=== PATIENT | male | born 1975 | race Caucasian/White ===

== ENCOUNTER 2024-05-21 10:54 | Emergency (ER) | payer MEDICARE, SELFPAY ==
[2024-05-21 11:03] VITALS: BP 151/90; PULSE 73; RESP 16; TEMP 36.7; O2SAT 100
--- NOTE | 2024-05-21 11:27 | ED_ITS ---
HPI - Wound/Laceration General Chief Complaint: Wound/Laceration Stated Complaint: Laceration to Left Thumb Time Seen by Provider: 05/21/24 11:16 Source: patient, RN notes reviewed and old records reviewed Mode of arrival: ambulatory Limitations: no limitations History of Present Illness HPI narrative: 48 year old male presents to [facility] with complaints of cutting his left thumb at thetip yesterday around 1100 with a chef manager knife cutting up chicken breasts Patient has flap style of cut to the end of left thumb with bleeding controlled,no injury to nail noted. Patient has full mobility of this left thumb, denies any tingling or numbness to his thumb, Patient reports that his tetanus is not up to date. Onset (ago): day(s) (yesterday at 1100) Patient tetanus UTD: No Treatments prior to arrival: other (cleansed with soap and water, bandage) Related Data Home Medications ?Medication ?Instructions ?Recorded ?Confirmed ?Last Taken ?Type buspirone 10 mg tablet 15 mg PO TID 07/19/22 08/03/23 Unknown History desvenlafaxine 50 mg 50 mg PO DAILY 07/19/22 08/03/23 Unknown History tablet,extended release 24 hour desvenlafaxine succinate 25 mg 25 mg PO DAILY 07/19/22 08/03/23 Unknown History tablet,extended release 24 hr oxcarbazepine 600 mg tablet 600 mg PO BID 07/19/22 08/03/23 Unknown History cholecalciferol (vitamin D3) 1,250 1,250 mcg PO WEEKLY 10/11/22 08/03/23 Unknown History mcg (50,000 unit) capsule amlodipine .ROUTE 05/21/24 Unknown History Allergies Allergy/AdvReac Type Severity Reaction Status Date / Time No Known Allergies Allergy Verified 05/21/24 11:09 Review of Systems Review of Systems: CONSTITUTIONAL: Denies fever, chills, or sweats. CARDIOVASCULAR: Denies chest pain, palpitations, or edema. RESPIRATORY: Denies cough or dyspnea. SKIN: Reports laceration to the tip of his left thumb with a chef manager knife cutting up chicken breast yesterday at 1100 with no injury to nail MUSCULOSKELETAL: Denies musculoskeletal pain NEUROLOGIC: Denies numbness, or weakness. All systems reviewed & are unremarkable except as noted in HPI and below [facility] Past Medical History Medical History Vegan diet COVID-26 February 2020 Bipolar disorder PTSD (post-traumatic stress disorder) Hypogonadism Hypothyroidism Diabetes mellitus Essential hypertension Obstructive sleep apnea Family History Family History Other Depression Diabetes mellitus Family history of malignant neoplasm Social History Social History Smoking status: Former smoker (he is vaping daily) Second hand tobacco smoke exposure: No Alcohol intake: current Substance use: never Substance use type: does not use Lack of Transportation: No Lack of Food: Never True Current Housing: I Have Housing Concerned About Future Housing: No Difficulty Paying Gas/Electric Bills: No Difficulty Paying for Meds: No Currently Unemployed: No Education: Bachelor's Degree Difficulty w/ Childcare or Family Care: No Gender identity (if verbalized by the patient): Male Sexual Orientation (if Verbalized by the Patient): Straight or Heterosexual Spiritual care concerns: No Agree to blood products: Yes Comments At time of signature, agree with nursing past medical, surgical, social and family history. There is no relevant family history pertinent to the presenting complaint Exam Narrative: GENERAL: Well-appearing, well-nourished, and in no acute distress. HEAD: Normocephalic, atraumatic. NECK: Supple.no lymphadenopathy CHEST: Clear to auscultation. No respiratory distress. SAO2 100% on room air HEART: Regular rate and rhythm. No murmur heard. Normal peripheral pulses. EXTREMITIES: Normal range of motion. No edema. SKIN: Warm, dry, no rash. Reports small flap style of laceration to the tip of his left thumb with no active bleeding, CSM intact; no injury to the nail NEURO: No focal deficits. Alert and oriented x3. Course Course Level of Care: Express Care Visit Vital Signs Vital signs: Vital Signs Temperature 36.7 C 05/21/24 11:03 Pulse Rate 73 05/21/24 11:03 Respiratory Rate 16 05/21/24 11:03 Blood Pressure 151/90 H 05/21/24 11:03 Pulse Oximetry 100 05/21/24 11:03 Oxygen Delivery Room Air 05/21/24 11:03 Temperature 36.7 C 05/21/24 11:03 Pulse Rate 73 05/21/24 11:03 Respiratory Rate 16 05/21/24 11:03 Blood Pressure 151/90 H 05/21/24 11:03 Pulse Oximetry 100 05/21/24 11:03 Oxygen Delivery Room Air 05/21/24 11:03 Procedures Laceration thumb: Date: 05/21/24 Time: 11:30 Site: other (tip of thumb) Side (If applicable): left Size (cm): 0.5 Description: flap Depth: simple, single layer Local Anesthetic: none Pre-repair: irrigated and other (cleansed with surclens wound cleanser) ====== Skin Level ====== Skin layer closed with: steri strips ====== Subcutaneous Layer ====== ====== Muscle Layer ====== ====== Tendon Layer ====== Dressing: wound to the tip of left thumb cleansed and irrigated and edges secured with steri strip and dressing applied of Telfa and tube gauze, wound care reviewed with patient with understanding voiced. MDM - Wound/Laceration MDM Narrative Medical decision making narrative: Wound explored for foreign body and copious irrigation provided with no evidence of FB. Discussed the potential of retained foreign body with the patient and signs/symptoms that should prompt the patient to immediately go to the ED for reevaluation. The wound was explored and no foreign bodies were found. There was no evidence of tendon or nerve lacerations. The wound was closed per procedure note. A sterile dressing was then applied and anticipatory guidance was provided. Tetanus prophylaxis was given Differential Diagnosis Differential diagnosis: Likely laceration, abrasion, avulsion of skin and other (flap laceration to tip pf left thumb) Medical Records Attestation: I reviewed the patient's medical records. Critical Care Time Critical Care Time Critical Care Time: No Discharge Plan Discharge Clinical Impression: Laceration of left thumb Qualifiers: Encounter type: initial encounter Damage to nail status: without damage Foreign body presence: without foreign body Qualified Code(s): S61.012A - Laceration without foreign body of left thumb without damage to nail, initial encounter Patient Disposition: Home, Self-Care Condition: Stable Instructions: Antibiotic Form, Laceration (ED) Additional Instructions: Keep the area clean and dry No continuous water contact like dishes or swimming You may bathe and wash you hair caution with hair products or lotions dressing of choice watch for infection--redness, swelling, drainage let Steri-Strips fall off on their own recheck with PCP if further concerns or problems If your symptoms persist, change or worsen significantly before you can contact your personal physician then please, without delay, go to the emergency department for further evaluation. Follow-up with PCP in 7-10 days or sooner if needed Follow up with PCP soon in regards to your blood pressure which is elevated above threshold for referral. Blood pressure above 120/80 may indicate pre- hypertension. 151/ Tetanus was updated antibiotic as ordered Patient Language: Mohawk Prescriptions: New cephalexin 500 mg capsule 500 mg PO Q12H Qty: 14 0RF No Action amlodipine .ROUTE buspirone 10 mg tablet 15 mg PO TID desvenlafaxine 50 mg tablet extended release 24hr 50 mg PO DAILY desvenlafaxine succinate 25 mg tablet extended release 24 hr 25 mg PO DAILY oxcarbazepine 600 mg tablet 600 mg PO BID cholecalciferol (vitamin D3) 1,250 mcg (50,000 unit) capsule 1,250 mcg PO WEEKLY (DME) pen needle, diabetic [BD Carmenza 2nd Gen Pen Needle] 32 gauge x 5/32 needle See Rx Instructions .ROUTE .MEDSUPPLY Qty: 100 6RF Rx Instructions: use daily As directed sildenafil 100 mg tablet See Rx Instructions .ROUTE .COMPLEX Qty: 10 6RF Dose Instruction: TAKE 1 TABLET BY MOUTH EVERY DAY NEEDED APPROXIMATELY 1 HOUR BEFORE SEXUAL ACTIVITY Rx Instructions: TAKE 1 TABLET BY MOUTH EVERY DAY NEEDED APPROXIMATELY 1 HOUR BEFORE SEXUAL ACTIVITY ergocalciferol (vitamin D2) 1,250 mcg (50,000 unit) capsule 1,250 mcg PO WEEKLY Qty: 14 3RF Mounjaro 2.5 mg/0.5 mL pen injector 2.5 mg subcut WEEKLY Qty: 7.5 1RF rosuvastatin 5 mg tablet 5 mg PO DAILY Qty: 90 0RF lisinopril 10 mg tablet 10 mg PO DAILY Qty: 90 1RF levothyroxine 112 mcg tablet 112 mcg PO DAILY Qty: 90 2RF Follow-up/Referrals: Moraima López MD [Primary Care Provider] - Time of Disposition: 11:43 Quality Lloyd Coma Scale Eyes: Open Verbal: Oriented and Alert Motor: Follows Commands [place] Coma Total Score: 15
[2024-05-21] MEDS: TETANUS,DIPHTHERIA,AC PERTUSSIS ADULT (0.5 ML) BOOSTRIX IM (11:37)
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
--- OUTSIDE RECORDS SUMMARY | 2024-05-21 11:44 | XMS_ITS | Clinical Summary ---
Author Organization [facility] Address [address] [place] [address] Phone Care Team Providers Care Ice Crusher Name Role Phone Moraima López MD Primary Care Provider [phone] Social History Tobacco Use Types Packs/Day Years Used Date Smoking Tobacco: Never Assessed Sex and Gender Information Value Date Recorded Sex Assigned at Not on file Legal Sex Male 7:15 PM CDT Gender Identity Not on file Sexual Orientation Not on file Plan of Treatment Health Maintenance Due Date Last Done Comments Hepatitis C Virus (HCV) Screening 1974 TdaP Immunization 1974 Hepatitis B Immunization (1 of 3 - 19+ 3-dose series) 1993 Colonoscopy 09/05/2019 Colorectal Cancer Screening 09/05/2019 Influenza Immunization (#1) 2023 SARS-COV-2 Immunization ( season) 2023 03/22/2021, 07/18/2020, 06/24/2020 Respiratory Syncytial Virus (RSV) Immunization (Adult) (1 - 1-dose 75+ series) 2049 Meningococcal Immunization (ACWY) Aged Out No longer eligible b ased on patient's age to complete this topic Pneumococcal Immunization Combined Aged Out No longer eligible b ased on patient's age to complete this topic Rotavirus Immunization Aged Out No lo nger eligible based on patient's age to complete this topic Insurance MEDICARE [facility] Care Teams Ice Crusher Relationship Specialty Start Date End Date Moraima López MD [address] [place] [address] PCP - General Family Medicine 06/20/17
--- OUTSIDE RECORDS SUMMARY | 2024-05-21 11:44 | XMS_ITS | Continuity of Care Document ---
Author Name [facility] Organization [facility] Care Team Providers Care Fish Tender Name Role Phone [facility] Unavailable Unavailable Problems Combined list of problems from Department of Defense and Veterans Affairs facilities. It does not include entries that were removed or entered in error. Problem Status Onset Date Problem Type Date of Resolution Comments Source hypertension systemic Active Condition DoD osteoarthritis knee Active Condition DoD visit for: administrative purpose Inactive Condition Paperwork for p t to be completed after he provides me with the address of the office of coordination for disability. DoD bipolar disorder Active Condition fol lows with psychiatry, on several meds and does not like his psychiatrist, handout given last visit for other network providers, pt to consider swithc in future can self refer DoD obesity morbid Active Condition MH wi ll not approve GB bc of motivational issues, pt not motivated to try anything for wt loss at this poiint; pt aware that I am willing to help when he is DoD Snoring Active Condition at risk fo r VIJAYA, deserves sleep study, consult placed pt to call ref mgt to arrange, likely contribuitng to #1, pt will email me when sleep study done so I can track down results and get back with him on further tx/fu plan DoD chronic sinusitis Active Condition ex am and sx not cw Nanci, will try augmenting 875 bid x3 wks and fu after that DoD hypothyroidism Active Condition renew ed synthroid DoD deviated nasal septum Active Condition not obvious on exam but may be due to old trauma, will check ct sinuses to see if there is any sturctural probs and then consider ENT referral DoD atypical chest pain Active Condition eval'd by dr albright last week, set up for ETT in near future, will use that to help pt design exercise program and risk strat for CAD DoD joint pain, localized in the knee Active Condition A: likely OA or patellofemoral syndrome, pt could benefit from wt loss (see above) but may also benefit from PT or hyalgan dep on pathologyP:--traci ck knee xrays--rec'd otc glucosamine-hollie droitin--if aobve not effective consider hyalgan DoD Bipolar disorder Active Condition [facility] Chronic low back pain Active Condition [facility] Essential hypertension Active Condition [facility] Hypothyroidism Active Condition [facility] Type 2 diabetes mellitus Active Condition [facility] Vitamin D deficiency Active Condition [facility] Diagnosis: ICD-10-CM M54.50 Low back pain, unspecified Active Diagnosis [facility] Diagnosis: ICD-10-CM I10 Essential (primary) hypertension Active Diagnosis [facility] Diagnosis: ICD-10-CM E11.9 Type 2 diabetes mellitus without complications Active Diagnosis [facility] Diagnosis: ICD-10-CM Z01.21 Encounter for dental exam and cleaning w abnormal findings Active Diagnosis [facility] Diagnosis: ICD-10-CM Z12.11 Encounter for screening for malignant neoplasm of colon Active Diagnosis [facility] Diagnosis: ICD-10-CM Z79.899 Other fdc (current) drug therapy Active Diagnosis [facility] Medications Combined list of outpatient medications from Department of Defense and Veterans Affairs facilities.Medications provided include 1) outpatient medications from the last 15 months, and 2) patient-reported medications. Medication Details Route Status Patient Instructions Prescription Expires Prescription Number Last Dispense Date Ordering Provider Order Date Order Qty Source AMLODIPINE BESYLATE 10MG TAB TAKE ONE TABLET BY MOUTH ONCE A DAY ORAL ACTIVE 05/06/2025 [id number] STEPHANIE, NOD K 2024 90 [facility] BISACODYL 5MG TAB,EC TAKE TWO TABLETS BY MOUTH ONE TIME TAKE BISACODY L TABLETS AT 4PM ON AFTERNOO N PRIOR TO TEST. CALL [phone] WITH ANY QUESTION S ABOUT THESE INSTRUCT IONS. MAIL TAKE BISACODY L TABLETS AT 4PM ON AFTERNOO N PRIOR TO TEST. CALL WITH ANY QUESTION S ABOUT THESE INSTRUCT IONS. MAIL ORAL DISCONT INUED BY PROVIDE R 03/06/2024 [id number] Jose M GALICIA 2023 2 [facility] BUSPIRONE HCL 15MG TAB TAKE TWO TABLETS BY MOUTH TWICE A DAY ORAL ACTIVE TREVOR NOONAN B 2023 [facility] CAMPHOR/MEN THOL/METHYL SALICYLATE LARGE PATCH APPLY 1 PATCH TO SKIN SITE ONCE A DAY FOR PAIN (EXTERNA L USE ONLY) TRANSD ERMAL ACTIVE 02/05/2025 [id number] LEROY PRECIADO 2023 60 [facility] DESVENLAFAX INE (EQV-PRISTI Q) 25MG TAB,SA TAKE THREE TABLETS BY MOUTH ONCE A DAY ORAL ACTIVE TREVOR NOONAN B 2023 [facility] DICLOFENAC NA 1% GEL,TOP APPLY 2 GM TO AFFECTED AREA(S) FOUR TIMES A DAY NEEDED FOR PAIN DO NOT EXCEED MORE THAN 16 GRAMS DAILY TO ANY LOWER EXTREMIT Y JOINT. NOT MORE THAN 8 GRAMS DAILY TO ANY UPPER EXTREMIT Y JOINT. MAX 32GM/DAY OVER ALL JOINTS. (MEASURE DOSE WITH RULER ATTACHED INSIDE BOX) TOPICA L ACTIVE 02/05/2025 [id number] 4 LEROY PRECIADO 2023 300 [facility] ERGOCALCIFE ROL 1,250MCG (50,000UNIT ) CAP TAKE 1 CAPSULE BY MOUTH EVERY WEEK ORAL ACTIVE TREVOR NOONAN B 2023 [facility] LEVOTHYROXI NE NA 112MCG TAB (SYNTHROID) TAKE ONE TABLET BY MOUTH EVERY MORNING BEFORE A MEAL ORAL ACTIVE TREVOR NOONAN B 2023 [facility] LISINOPRIL 20MG TAB TAKE ONE-HALF TABLET BY MOUTH ONCE A DAY ORAL ACTIVE 05/06/2025 [id number] STEPHANIE, NOD K 2024 45 [facility] LISINOPRIL 20MG TAB TAKE ONE-HALF TABLET BY MOUTH ONCE A DAY ORAL ACTIVE TREVOR NOONAN B 2023 [facility] OXCARBAZEPI NE 600MG TAB TAKE TWO TABLETS BY MOUTH ONCE A DAY ORAL ACTIVE TREVOR NOONAN B 2023 [facility] PEG-3350/EL ECTROLYTES PWDR MIX AND DRINK CONTENTS OF BOTTLE BY MOUTH DIRECTED (THE DAY BEFORE YOUR TEST ONLY DRINK CLEAR LIQUIDS- NO SOLID FOOD! TAKE THE BISACODY L TABLETS AT 4PM AND MIX THE GOLYTELY WITH WATER AND REFRIGER ATE. AT 7PM DRINK HALF OF THE GOLYTELY . REFRIGER ATE OVERNIGH T. COMPLETE GOLYTELY 3 HRS BEFORE LEAVING HOME FOR TEST. READ YOUR INSTRUCT IONS!) (THE DAY BEFORE YOUR TEST ONLY DRINK CLEAR LIQUIDS- NO SOLID FOOD! TAKE THE BISACODY L TABLETS AT 4PM AND MIX THE GOLYTELY WITH WATER AND REFRIGER ATE. AT 7PM DRINK HALF OF THE GOLYTELY . REFRIGER ATE OVERNIGH T. COMPLETE GOLYTELY 3 HRS BEFORE LEAVING HOME FOR TEST. READ YOUR INSTRUCT IONS!) ORAL DISCONT INUED BY PROVIDE R 03/06/2024 [id number] Jose M GALICIA 2023 1 [facility] ROSUVASTATI N TAB TAKE BY MOUTH EVERY EVENING ORAL ACTIVE NIKKI BROWN K 2024 [facility] SIMETHICONE 80MG TAB,CHEW CHEW AND SWALLOW FOUR TABLETS BY MOUTH DIRECTED FOR GAS DISCOMFO RT FOR TWO DOSES BEFORE GI PROCEDUR E ORAL DISCONT INUED BY PROVIDE R 03/06/2024 [id number] Jose M GALICIA 2023 8 [facility] SODIUM FLUORIDE 1.1% GEL,DENT APPLY LIGHTLY BY MOUTH ONCE A DAY FOR DENTAL CARE - AFTER BRUSHING TEETH; APPLY SPARINGL Y; DO NOT EAT, DRINK OR RINSE FOR 30 MINUTES AFTER APPLICAT ION ORAL ACTIVE 04/15/2025 [id number] 5 KADOSH,NA FTALI 2024 60 [facility] TIRZEPATIDE 2.5MG/0.5ML INJ,SOLN PACK,4 INJECT 2.5MG(0. 5ML) UNDER THE SKIN EVERY WEEK SUBCUT ANEOUS ACTIVE TREVOR NOONAN 2023 [facility] Allergies, Adverse Reactions, Alerts Combined list of allergies from Department of Defense and Veterans Affairs facilities. It does not include entries that were removed or entered in error. Substance Category Reaction Severity Reaction type Status Date Reported Comments Source LITHIUM DERIVATIVES {Cla } Drug allergy (disorder) Unknown active 05/04/2005 DoD Immunizations Combined list of available immunizations from the Department of Defense and Veterans Affairs facilities. Immunization Series Date Given Administered By Site Reaction Lot Number CVX Code Drug Racket Stringer Status Comments Source INFLUENZA, UNSPECIFIED FORMULATION 2023 88 complet ed [facility] Results Combined list of recent chemistry, hematology and other laboratory results from Department of Defense and Veterans Affairs, ranging from 15 months to all on record, depending upon the facility. Order Name Results Value Reference Range Date Interpretation Specimen Comments Source B12 COBALAMIN (VITAMIN B12) [MASS/VOLUM E] IN SERUM OR PLASMA 1221 pg/mL 213 - 816 04/16 H Specimen Type: SERUM No comment entered. Ordering Provider: BA BROWN Report Released Date/Time: Apr 16, 2024 11:22 AM Reporting Lab: [facility] [address] [place] [address] Performing Lab: [address] [address] [facility] FOLATE (ST-NE) FOLATE [MASS/VOLUM E] IN SERUM OR PLASMA 14.2 ng/mL 7 - 20 04/16 Specimen Type: SERUM No comment entered. Ordering Provider: BA BROWN Report Released Date/Time: Apr 16, 2024 11:22 AM Reporting Lab: [facility] [address] [place] [phone] Performing Lab: [address] [phone] [place] [address] [facility] HGA1C HEMOGLOBIN A1C/HEMOGLO BIN.TOTAL IN BLOOD 4.7 4.0 - 6.0 04/16 Specimen Type: BLOOD No comment entered. Ordering Provider: BA BROWN Report Released Date/Time: Apr 16, 2024 11:22 AM Reporting Lab: [place] [id number] [facility] [address] Performing Lab: [address] [phone] [place] [address] [facility] MICRAL/CRE AT PROFILE (STL) ALBUMIN [MASS/VOLUM E] IN URINE 163.2 mg/L 04/16 Specimen Type: URINE No comment entered. Ordering Provider: BA BROWN Report Released Date/Time: Apr 16, 2024 11:22 AM Reporting Lab: [place] [address] [facility] [address] Performing Lab: [address] [address] [facility] MICRAL/CRE AT PROFILE (STL) ALBUMIN/CRE ATININE [MASS RATIO] IN URINE 106 mg/g 0 - 29 04/16 H Specimen Type: URINE No comment entered. Ordering Provider: BA BROWN Report Released Date/Time: Apr 16, 2024 11:22 AM Reporting Lab: [address] [address] Performing Lab: [place] [address] [facility] [address] [facility] MICRAL/CRE AT PROFILE (STL) CREATININE [MASS/VOLUM E] IN URINE 153.6 mg/dL 63 - 166 04/16 Specimen Type: URINE No comment entered. Ordering Provider: BA BROWN Report Released Date/Time: Apr 16, 2024 11:22 AM Reporting Lab: [address] [address] Performing Lab: [address] [phone] [place] [address] [facility] CBC LEUKOCYTES [#/VOLUME] IN BLOOD BY AUTOMATED COUNT 4.6 10*3/u L 3.6 - 11.2 02/04 Specimen Type: BLOOD No comment entered. Ordering Provider: BELINDA PRECIADO Report Released Date/Time: Feb 05, 2024 09:02 AM Reporting Lab: [address] [address] Performing Lab: [address] [address] [place] [facility] CBC ERYTHROCYTE S [#/VOLUME] IN BLOOD BY AUTOMATED COUNT 5.26 10*6/u L 4.10 - 5.70 02/04 Specimen Type: BLOOD No comment entered. Ordering Provider: BELINDA PRECIADO Report Released Date/Time: Feb 05, 2024 09:02 AM Reporting Lab: [place] [address] Performing Lab: [address] [facility] CBC HEMOGLOBIN [MASS/VOLUM E] IN BLOOD 15.1 g/dL 13.1 - 16.8 02/04 Specimen Type: BLOOD No comment entered. Ordering Provider: BELINDA PRECIADO Report Released Date/Time: Feb 05, 2024 09:02 AM Reporting Lab: [place] [address] Performing Lab: [address] [facility] CBC HEMATOCRIT [VOLUME FRACTION] OF BLOOD 45.0 38.2 - 48.4 02/04 Specimen Type: BLOOD No comment entered. Ordering Provider: BELINDA PRECIADO Report Released Date/Time: Feb 05, 2024 09:02 AM Reporting Lab: [place] [address] Performing Lab: [address] [facility] CBC MCV [ENTITIC VOLUME] BY AUTOMATED COUNT 85.6 fL 80.0 - 100.0 02/04 Specimen Type: BLOOD No comment entered. Ordering Provider: BELINDA PRECIADO Report Released Date/Time: Feb 05, 2024 09:02 AM Reporting Lab: [place] [address] Performing Lab: [address] [facility] CBC MCH [ENTITIC MASS] BY AUTOMATED COUNT 28.7 pg 27.0 - 34.0 02/04 Specimen Type: BLOOD No comment entered. Ordering Provider: BELINDA PRECIADO Report Released Date/Time: Feb 05, 2024 09:02 AM Reporting Lab: [facility] [address] [place] [phone] Performing Lab: [address] [phone] [place] [address] [facility] CBC MCHC [MASS/VOLUM E] BY AUTOMATED COUNT 33.6 g/dL 33.0 - 36.0 02/04 Specimen Type: BLOOD No comment entered. Ordering Provider: BELINDA PRECIADO Report Released Date/Time: Feb 05, 2024 09:02 AM Reporting Lab: [address] [address] Performing Lab: [phone] [facility] CBC PLATELETS [#/VOLUME] IN BLOOD BY AUTOMATED COUNT 214 10*3/u L 150 - 400 02/04 Specimen Type: BLOOD No comment entered. Ordering Provider: BELINDA PRECIADO Report Released Date/Time: Feb 05, 2024 09:02 AM Reporting Lab: [facility] [address] [place] [phone] Performing Lab: [address] [phone] [place] [address] [facility] CBC PLATELET MEAN VOLUME [ENTITIC VOLUME] IN BLOOD BY AUTOMATED COUNT 9.9 fL 7.5 - 11.2 02/04 Specimen Type: BLOOD No comment entered. Ordering Provider: BELINDA PRECIADO Report Released Date/Time: Feb 05, 2024 09:02 AM Reporting Lab: [facility] [address] [place] [phone] Performing Lab: [address] [phone] [place] [address] [facility] CBC ERYTHROCYTE DISTRIBUTIO N WIDTH [RATIO] BY AUTOMATED COUNT 13.4 11.8 - 15.1 02/04 Specimen Type: BLOOD No comment entered. Ordering Provider: BELINDA PRECIADO Report Released Date/Time: Feb 05, 2024 09:02 AM Reporting Lab: [facility] [address] [facility] [address] Performing Lab: [facility] [address] [facility] [address] [facility] CBC LYMPHOCYTES /100 LEUKOCYTES IN BLOOD BY AUTOMATED COUNT 15 02/04 Specimen Type: BLOOD No comment entered. Ordering Provider: BELINDA PRECIADO Report Released Date/Time: Feb 05, 2024 09:02 AM Reporting Lab: [facility] [address] [facility] [address] Performing Lab: [facility] [address] [facility] [address] [facility] CBC MONOCYTES/1 00 LEUKOCYTES IN BLOOD BY AUTOMATED COUNT 8 02/04 Specimen Type: BLOOD No comment entered. Ordering Provider: BELINDA PRECIADO Report Released Date/Time: Feb 05, 2024 09:02 AM Reporting Lab: [facility] [address] [facility] [address] Performing Lab: [facility] [address] [facility] [address] [facility] CBC NEUTROPHILS /100 LEUKOCYTES IN BLOOD BY AUTOMATED COUNT 75 02/04 Specimen Type: BLOOD No comment entered. Ordering Provider: BELINDA PRECIADO Report Released Date/Time: Feb 05, 2024 09:02 AM Reporting Lab: [facility] [address] [facility] [address] Performing Lab: [facility] [address] [facility] [address] [facility] CBC EOSINOPHILS /100 LEUKOCYTES IN BLOOD BY AUTOMATED COUNT 1 02/04 Specimen Type: BLOOD No comment entered. Ordering Provider: BELINDA PRECIADO Report Released Date/Time: Feb 05, 2024 09:02 AM Reporting Lab: [facility] [address] [facility] [address] Performing Lab: [facility] [address] [facility] [address] [facility] CBC BASOPHILS/1 00 LEUKOCYTES IN BLOOD BY AUTOMATED COUNT 1 02/04 Specimen Type: BLOOD No comment entered. Ordering Provider: BELINDA PRECIADO Report Released Date/Time: Feb 05, 2024 09:02 AM Reporting Lab: [address] [address] Performing Lab: [address] [address] [facility] CBC LYMPHOCYTES [#/VOLUME] IN BLOOD BY AUTOMATED COUNT 0.70 10*3/u L 0.77 - 4.50 02/04 L Specimen Type: BLOOD No comment entered. Ordering Provider: BELINDA PRECIADO Report Released Date/Time: Feb 05, 2024 09:02 AM Reporting Lab: [address] [address] Performing Lab: [address] [address] [facility] CBC MONOCYTES [#/VOLUME] IN BLOOD BY AUTOMATED COUNT 0.35 10*3/u L 0.19 - 0.80 02/04 Specimen Type: BLOOD No comment entered. Ordering Provider: BELINDA PRECIADO Report Released Date/Time: Feb 05, 2024 09:02 AM Reporting Lab: [address] [address] Performing Lab: [address] [address] [facility] CBC NEUTROPHILS [#/VOLUME] IN BLOOD BY AUTOMATED COUNT 3.45 10*3/u L 2.10 - 8.00 02/04 Specimen Type: BLOOD No comment entered. Ordering Provider: BELINDA PRECIADO Report Released Date/Time: Feb 05, 2024 09:02 AM Reporting Lab: [address] [address] Performing Lab: [address] [address] [facility] CBC EOSINOPHILS [#/VOLUME] IN BLOOD BY AUTOMATED COUNT 0.05 10*3/u L 0.00 - 0.60 02/04 Specimen Type: BLOOD No comment entered. Ordering Provider: BELINDA PRECIADO Report Released Date/Time: Feb 05, 2024 09:02 AM Reporting Lab: [place] [address] Performing Lab: [address] [phone] [facility] CBC BASOPHILS [#/VOLUME] IN BLOOD BY AUTOMATED COUNT 0.03 10*3/u L 0.00 - 0.20 02/04 Specimen Type: BLOOD No comment entered. Ordering Provider: BELINDA PRECIADO Report Released Date/Time: Feb 05, 2024 09:02 AM Reporting Lab: [place] [address] Performing Lab: [phone] [facility] COMPREHENS RAI METABOLIC PANEL CREATININE [MASS/VOLUM E] IN SERUM OR PLASMA 0.81 mg/dL 0.7 - 1.3 02/04 Specimen Type: PLASMA Comment: No hemolysis noted. Ordering Provider: BELINDA PRECIADO Report Released Date/Time: Feb 05, 2024 09:02 AM Reporting Lab: [place] [address] Performing Lab: [address] [phone] [facility] COMPREHENS RAI METABOLIC PANEL UREA NITROGEN [MASS/VOLUM E] IN SERUM OR PLASMA 18.9 mg/dL 9.0 - 25.0 02/04 Specimen Type: PLASMA Comment: No hemolysis noted. Ordering Provider: BELINDA PRECIADO Report Released Date/Time: Feb 05, 2024 09:02 AM Reporting Lab: [place] [address] Performing Lab: [facility] [address] [facility] [address] [facility] COMPREHENS RAI METABOLIC PANEL GLUCOSE [MASS/VOLUM E] IN SERUM OR PLASMA 83 mg/dL 72 - 99 02/04 Specimen Type: PLASMA Comment: No hemolysis noted. Ordering Provider: BELINDA PRECIADO Report Released Date/Time: Feb 05, 2024 09:02 AM Reporting Lab: [place] [address] [facility] [address] Performing Lab: [place] [address] [facility] [address] [facility] COMPREHENS RAI METABOLIC PANEL SODIUM [MOLES/VOLU ME] IN SERUM OR PLASMA 137 meq/L 136 - 145 02/04 Specimen Type: PLASMA Comment: No hemolysis noted. Ordering Provider: BELINDA PRECIADO Report Released Date/Time: Feb 05, 2024 09:02 AM Reporting Lab: [place] [address] [facility] [address] Performing Lab: [place] [address] [facility] [address] [facility] COMPREHENS RAI METABOLIC PANEL POTASSIUM [MOLES/VOLU ME] IN SERUM OR PLASMA 4.1 meq/L 3.5 - 5 02/04 Specimen Type: PLASMA Comment: No hemolysis noted. Ordering Provider: BELINDA PRECIADO Report Released Date/Time: Feb 05, 2024 09:02 AM Reporting Lab: [place] [address] [facility] [address] Performing Lab: [place] [address] [facility] [address] [facility] COMPREHENS RAI METABOLIC PANEL CHLORIDE [MOLES/VOLU ME] IN SERUM OR PLASMA 100 meq/L 98 - 107 02/04 Specimen Type: PLASMA Comment: No hemolysis noted. Ordering Provider: BELINDA PRECIADO Report Released Date/Time: Feb 05, 2024 09:02 AM Reporting Lab: [place] [address] [facility] [address] Performing Lab: [facility] [address] [place] [address] [facility] COMPREHENS RAI METABOLIC PANEL CARBON DIOXIDE, TOTAL [MOLES/VOLU ME] IN SERUM OR PLASMA 30 meq/L 22 - 31 02/04 Specimen Type: PLASMA Comment: No hemolysis noted. Ordering Provider: BELINDA PRECIADO Report Released Date/Time: Feb 05, 2024 09:02 AM Reporting Lab: [address] [address] Performing Lab: [address] [phone] [place] [address] [facility] COMPREHENS RAI METABOLIC PANEL CALCIUM [MASS/VOLUM E] IN SERUM OR PLASMA 10.1 mg/dL 8.4 - 10.4 02/04 Specimen Type: PLASMA Comment: No hemolysis noted. Ordering Provider: BELINDA PRECIADO Report Released Date/Time: Feb 05, 2024 09:02 AM Reporting Lab: [address] [address] Performing Lab: [address] [phone] [place] [address] [facility] COMPREHENS RAI METABOLIC PANEL PROTEIN [MASS/VOLUM E] IN SERUM OR PLASMA 7.0 g/dL 6 - 8.6 02/04 Specimen Type: PLASMA Comment: No hemolysis noted. Ordering Provider: BELINDA PRECIADO Report Released Date/Time: Feb 05, 2024 09:02 AM Reporting Lab: [place] [address] [facility] [address] Performing Lab: [address] [address] [facility] COMPREHENS RAI METABOLIC PANEL ALBUMIN [MASS/VOLUM E] IN SERUM OR PLASMA 4.7 g/dL 3.4 - 5 02/04 Specimen Type: PLASMA Comment: No hemolysis noted. Ordering Provider: BELINDA PRECIADO Report Released Date/Time: Feb 05, 2024 09:02 AM Reporting Lab: [facility] [address] [facility] [address] Performing Lab: [facility] [address] [facility] COMPREHENS RAI METABOLIC PANEL BILIRUBIN.T OTAL [MASS/VOLUM E] IN SERUM OR PLASMA 0.7 mg/dL 0.2 - 1.2 02/04 Specimen Type: PLASMA Comment: No hemolysis noted. Ordering Provider: BELINDA PRECIADO Report Released Date/Time: Feb 05, 2024 09:02 AM Reporting Lab: [place] [address] [facility] [address] Performing Lab: [address] [address] [facility] COMPREHENS RAI METABOLIC PANEL ALKALINE PHOSPHATASE [ENZYMATIC ACTIVITY/VO LUME] IN SERUM OR PLASMA 81 U/L 40 - 150 02/04 Specimen Type: PLASMA Comment: No hemolysis noted. Ordering Provider: BELINDA PRECIADO Report Released Date/Time: Feb 05, 2024 09:02 AM Reporting Lab: [address] [address] Performing Lab: [place] [address] [facility] [address] [facility] COMPREHENS RAI METABOLIC PANEL ASPARTATE AMINOTRANSF ERASE [ENZYMATIC ACTIVITY/VO LUME] IN SERUM OR PLASMA 30 U/L 5 - 34 02/04 Specimen Type: PLASMA Comment: No hemolysis noted. Ordering Provider: BELINDA PRECIADO Report Released Date/Time: Feb 05, 2024 09:02 AM Reporting Lab: [facility] [address] [place] [phone] Performing Lab: [address] [address] [facility] COMPREHENS RAI METABOLIC PANEL ALANINE AMINOTRANSF ERASE [ENZYMATIC ACTIVITY/VO LUME] IN SERUM OR PLASMA 62 U/L 8 - 40 02/04 H Specimen Type: PLASMA Comment: No hemolysis noted. Ordering Provider: BELINDA PRECIADO Report Released Date/Time: Feb 05, 2024 09:02 AM Reporting Lab: [facility] [address] [place] [address] Performing Lab: [address] [phone] [place] [address] [facility] COMPREHENS RAI METABOLIC PANEL GLOMERULAR FILTRATION RATE/1.73 SQ M.PREDICTED [VOLUME RATE/AREA] IN SERUM, PLASMA OR BLOOD BY CREATININE- BASED FORMULA (CKD-EPI 2020) 108.1 60 02/04 Specimen Type: PLASMA Comment: No hemolysis noted. Ordering Provider: BELINDA PRECIADO Report Released Date/Time: Feb 05, 2024 09:02 AM Reporting Lab: [facility] [address] [place] [phone] Performing Lab: [address] [phone] [place] [address] [facility] HGA1C HEMOGLOBIN A1C/HEMOGLO BIN.TOTAL IN BLOOD 4.7 4.0 - 6.0 02/04 Specimen Type: BLOOD No comment entered. Ordering Provider: BELINDA PRECIADO Report Released Date/Time: Feb 05, 2024 09:02 AM Reporting Lab: [facility] [address] [place] [phone] Performing Lab: [place] [address] [facility] [phone] [place] [address] [facility] LIPID PANEL (STL) CHOLESTEROL [MASS/VOLUM E] IN SERUM OR PLASMA 150 mg/dL 0 - 200 02/04 Specimen Type: PLASMA Comment: No hemolysis noted. Ordering Provider: BELINDA PRECIADO Report Released Date/Time: Feb 05, 2024 09:02 AM Reporting Lab: [facility] [address] [place] [phone] Performing Lab: [address] [phone] [facility] LIPID PANEL (STL) TRIGLYCERID E [MASS/VOLUM E] IN SERUM OR PLASMA 48 mg/dL 0 - 150 02/04 Specimen Type: PLASMA Comment: No hemolysis noted. Ordering Provider: BELINDA PRECIADO Report Released Date/Time: Feb 05, 2024 09:02 AM Reporting Lab: [facility] [address] [place] [phone] Performing Lab: [facility] [address] [place] [phone] [facility] LIPID PANEL (STL) CHOLESTEROL IN LDL [MASS/VOLUM E] IN SERUM OR PLASMA BY CALCULATION 60 mg/dL 02/04 Specimen Type: PLASMA Comment: No hemolysis noted. Ordering Provider: BELINDA PRECIADO Report Released Date/Time: Feb 05, 2024 09:02 AM Reporting Lab: [address] [address] Performing Lab: [address] [address] [facility] LIPID PANEL (STL) CHOLESTEROL IN HDL [MASS/VOLUM E] IN SERUM OR PLASMA 80 mg/dL 40 02/04 Specimen Type: PLASMA Comment: No hemolysis noted. Ordering Provider: BELINDA PRECIADO Report Released Date/Time: Feb 05, 2024 09:02 AM Reporting Lab: [facility] [address] [place] [phone] Performing Lab: [address] [phone] [place] [address] [facility] TSH W/ REFLEX FT4 (STL) THYROTROPIN [UNITS/VOLU ME] IN SERUM OR PLASMA 1.568 u[IU]/ mL 0.47 - 5 02/04 Specimen Type: PLASMA No comment entered. Ordering Provider: BELINDA PRECIADO Report Released Date/Time: Feb 05, 2024 09:02 AM Reporting Lab: [facility] [address] [place] [phone] Performing Lab: [address] [address] [facility] VITAMIN D, 25-HYDROXY 25-HYDROXYV ITAMIN D3 [MASS/VOLUM E] IN SERUM OR PLASMA 34.1 ng/mL 30 - 96 02/04 Specimen Type: SERUM Comment: The listed sex of this patient may not be a typical indication for this test. Therefore, reference ranges or interpretive criteria listed may not be valid. Clinical correlation suggested. Ordering Provider: BELINDA PRECIADO Report Released Date/Time: Feb 05, 2024 09:02 AM Reporting Lab: [facility] [address] [facility] [address] Performing Lab: [facility] [address] [facility] [phone] [facility] Vital Signs Combined list of inpatient and outpatient Vital Signs from Department of Defense and Veterans Affairs, ranging from 12 months to all on record, depending upon the facility. Vital Sign Value Date Comments Source SYSTOLIC BLOOD PRESSURE 148 04/30/2024 10:27:57 [facility] DIASTOLIC BLOOD PRESSURE 88 04/30/2024 10:27:57 [facility] PULSE 80 04/30/2024 10:27:57 [facility] SYSTOLIC BLOOD PRESSURE 151 04/16/2024 10:34:45 [facility] DIASTOLIC BLOOD PRESSURE 91 04/16/2024 10:34:45 [facility] PULSE OXIMETRY 98 04/16/2024 10:34:45 [facility] WEIGHT 223.5 04/16/2024 10:34:45 [facility] BMI 28 kg/m2 04/16/2024 10:34:45 [facility] PAIN 4 04/16/2024 10:34:45 [facility] HEIGHT 75 04/16/2024 10:34:45 [facility] TEMPERATURE 98.7 04/16/2024 10:34:45 [facility] PULSE 68 04/16/2024 10:34:45 [facility] RESPIRATION 18 04/16/2024 10:34:45 [facility] SYSTOL[facility] BLO[facility] PRESS[facility] 149 02/05/2024 08:33:13 [facility] DIASTOLIC BLOOD PRESSURE 92 02/05/2024 08:33:13 [facility] PULSE OXIMETRY 100 02/05/2024 08:33:13 [facility] WEIGHT 212 02/05/2024 08:33:13 [facility] [place] [facility] BMI 27 kg/m2 02/05/2024 08:33:13 [facility] [place] [facility] PAIN 0 02/05/2024 08:33:13 [facility] HEIGHT 75 02/05/2024 08:33:13 [facility] TEMPERATURE 97.2 02/05/2024 08:33:13 [facility] [place] [facility] PULSE 77 02/05/2024 08:33:13 [facility] RESPIRATION 18 02/05/2024 08:33:13 [facility] Encounters Combined list of: 1) Encounters from Department of Veterans Affairs facilities going backup to the last 18 months, not all [place] inpatient encounters are included; 2) Encounters from the Department of Defense facilities going backup to 280 months. Location Location Details Encounter Type Encounter Number Reason For Visit Attending Provider ADM Date DC Date Status Disposition Source [address] [place] [address] [place] [facility] [facility] F[place] Res [place]) OUTPATIENT [id number] History of Chest Pain New to Clinic PERLA ALBRIGHT 04/21 Released w/o Limitations [address] [place] [address] Lit [facility]S [facility] Fam [facility] [place]) [address] [place] [address] [facility] [facility] Fam Res [place]) OUTPATIENT [id number] initial pcm appt--s tress test/kn ee pain AHSAN GUERRERO 05/04 Released w/o Limitations [address] [place] [address] Lit [facility] F[facility] [place]) [address] [place] [address] Lit [facility]Sco tt [facility] [place] Fam Res [place]) OUTPATIENT [id number] labs,xr ays AHSAN GUERRERO 06/01 Released w/o Limitations [address] [place] [address] Lit [facility] F[facility] [place]) [address] [place] [address] Lit [facility]Sco tt [facility] [place] Fam Res [place]) TELE CONSULT [id number] Med Refill BOBY MEJIA 07/[address] [place] [address] Lit [facility] F[facility] [place]) [address] [place] [address] Lit [place] [facility] [place] Fam Res [place]) OUTPATIENT [id number] blood pressur e, tests AHSAN GUERRERO 07/21 Released w/o Limitations [address] [place] [address] Lit [place] [facility] Fam Res [place]) [address] [place] [address] Lit ETIENNEB [facility] OUTPATIENT [id number] BENEDICTO, 10/02 Released w/o Limitations [address] [place] [address] Lit ETIENNEElizabeth [facility]) [address] [place] [address] Lit [place] [facility] Fam Res [place]m [place]) OUTPATIENT [id number] f/u sinus,B P AHSAN GUERRERO 10/05 Released w/o Limitations [address] [place] [address] Lit ETIENN[place]izabeth [place] [facility] Fam Res [place]) [address] [place] [address] Lit [facility]ENNEB [facility]co tt [facility] [place] [place] Fam Res [place]m [place]) OUTPATIENT [id number] Counsli ng josue on related ROYGRAND F 11/13 Released w/o Limitations [address] [place] [address] Lit ETIENNEB [place] [facility] [place] Fam Res Tm [place]) [address] [place] [address] Lit E[facility]ENNEB [facility]Sco tt [facility] [place] Fam Res Tm Green) TELE CONSULT [id number] Form AHSAN GUERRERO 11/[address] [place] [address] Lit ETIENNEB [place] [facility] Fam Res Tm Green) [address] [place] [address] Lit E[facility]ENNEB [facility]Sco tt [facility] FAMRES Tm Blue) TELE CONSULT [id number] Med RefDANIELE Albrecht 01/[address] [place] [address] Lit CLIFTONB [place] [facility] FAMRES Tm Blue) [facility] Outpatient Encounter [id number] 12/08 [facility]ARM ADDL 15 MIN [id number] Diagnos is: ICD-10- CM 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 Outpatient Encounter [id number] 02/04 [facility] Outpatient Encounter [id number] 02/04 [facility] CB OFFICE O/P NEW MOD 45 MIN [id number] Diagnos is: ICD-10- CM E11.9 Type 2 diabete s mellitu s without complic ations PRECIADO,T ODD 02/04 [facility] Outpatient Encounter [id number] Diagnos is: ICD-10- CM Z12.11 Encount er for screeni ng for maligna nt neoplas m of colon GUIGNON, RIST[place] 02/04 [facility] Outpatient Encounter [id number] PRECIADO,T ODD 02/05 [facility] Outpatient Encounter [id number] 02/07 [facility] Outpatient Encounter [id number] PRECIADO,T ODD 02/10 [facility] THERAPEUTI C EXERCISES [id number] Diagnos is: ICD-10- CM M54.50 Low back pain, unspeci fiKATIA Head 03/05 [facility] Outpatient Encounter [id number] CHACHA,JOSH CHUCHO A 03/07 [facility] THERAPEUTI C EXERCISES [id number] Diagnos is: ICD-10- CM M54.50 Low back pain, unspeci fied KATIA RENEE 03/26 [facility] Outpatient Encounter [id number] DOUGLAS SANTAMARIA 04/10 [facility] DENTAL PANORAMIC IMAGE [id number] Diagnos is: ICD-10- CM Z01.21 Encount er for dental exam and cleanin g w abnorma l finding s MAREK TOMAS CASH 04/14 [facility] OFF/OP EST AUGUST X REQ PHY/QHP [id number] Diagnos is: ICD-10- CM E11.9 Type 2 diabete s mellitu s without complic ations DOUGLAS SANTAMARIA 04/14 [facility] Outpatient Encounter [id number] 04/15 [facility] Outpatient Encounter [id number] LISA LIRA L 04/15 [facility] Outpatient Encounter [id number] 04/16 [facility] SYNCH AUDIO-VIDE O EST MOD 30 [id number] Diagnos is: ICD-10- CM I10 Essenti al (primar y) hyperte nsion STEPHANIE,SHABBIR OD K 04/16 [facility] SYNCH AUDIO-VIDE O EST MOD 30 [id number] Diagnos is: ICD-10- CM I10 Essenti al (primar y) hyperte nsion STEPHANIE,SHABBIR OD K 04/16 [facility] Outpatient Encounter [id number] 04/16 [facility] Out[facility] Encounter [id number] 04/22 [facility] THERAPEUTI C EXERCISES [id number] Diagnos is: ICD-10- CM M54.50 Low back pain, unspeci KATIA Chamberlain E E 04/23 [facility] EDU&TRN PT SELF-MGMT NQHP 1 [id number] Diagnos is: ICD-10- CM I10 Essenti al (primar y) hyperte nsgopal TED GARZAI CA E 04/30 [facility] Outpatient Encounter [id number] OLLIE GARZA CA E 04/30 [facility] PH1 ASSMT&MGMT NQHP 11-20 [id number] Diagnos is: ICD-10- CM I10 Essenti al (primar y) hyperte tammie KARLIE,ARM MAL 05/05 [facility] THER[facility] EXERCISES [id number] Diagnos is: ICD-10- CM M54.50 Low back pain, unspeci grey RENEEKATIA E E 05/14 [facility] Procedures Combined list of: 1) Procedures from Department of Veterans Affairs facilities going back up to thelast 18 months, not all VA non-surgical procedures are included; 2) All procedures from the Department of Defense facilities. Procedure Procedure Type Code Date Perfomer Comments Sour e Psychiatric Diagnostic Evaluation Comprehensive Examination Psychiatric Diagnostic Evaluation Comprehensive Examination [id number] 10/02/2005LIZ ALEXIS [facility] PSYCHIATRIC DIAGNOSTIC INTERVIEW EXAMINATION 10/02/2005 [facility] Social History Combined list of available smoking, tobacco, and other social history from Department of Defense and Veterans Affairs facilities. Social History Type Response Date Comment Sourc e Tobacco smoking status NHIS VA-TOBACCO FORMER USER 02/05/2024 [facility] History of tobacco use VA-TOBACCO QUIT 1 TO < 5 YRS 02/05/2024 [facility] This section is an empty social history section. [facility] Plan of Care List of future care activities from Department of Veterans Affairs facilities. Additional future care activities may be listed in the Assessment and Plan section. Date/Time Care Activity Care Activity Detail Facili ty 06/09/2024 AMBULATORY - NONE AMBULATORY - NONE [facility] 06/11/2024 AMBULATORY - REHAB MEDICINE AMBULATORY - REHAB MEDICINE [facility] 06/16/2024 AMBULATORY - NONE AMBULATORY - NONE [facility] 06/16/2024 AMBULATORY - NEUROLOGY AMBULATORY - NEURO LOGY [facility] 06/20/2024 AMBULATORY - SURGERY AMBULATORY - SURGERY [facility] 07/23/2024 AMBULATORY - NONE AMBULATORY - NONE 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
--- OUTSIDE RECORDS SUMMARY | 2024-05-21 11:44 | XMS_ITS | Referral Summary ---
Author Organization [address] Address [address] [place] [phone] Care Team Providers Care Rn Social Work Name Role Phone Moraima López MD Primary Care Provider Allergies No known active allergies Medications levothyroxine [...] medication changes. - Collateral obtained from (shahriar [phone]) who agreed with the patient's HPI. She stated that if patient reports improvement of symptoms and no longer endorses hearing the voice, she is comfortable with discharge. She states the patient is always very open and honest about his symptoms with her. Also spoke with his outpatient psychiatrist who also agrees with the plan. 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
--- OUTSIDE RECORDS SUMMARY | 2024-05-21 11:44 | XMS_ITS | Encounter Summary ---
Author Organization [facility] Address [address] [place] [address] Phone Care Team Providers Care Tire Inspector Name Role Phone Moraima López MD Primary Care Provider [phone] Encounter Details Date Type Department Care Team (Late st Contact Info) Description 07/03/2017 Orders Only [facility] ProviderEmelyn MD [address] [place] [id number] Social History Tobacco Use Types Packs/Day Years Used Date Smoking Tobacco: Some Days Smokeless Tobacco: Never Alcohol Use Standard Drinks/Week Comments Yes 0 (1 standard drink = 0.6 oz pur e alcohol) Sex and Gender Information Value Date Recorded Sex Assigned at Not on file 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 Historical Provider LAB BLOOD ORDERABLES Charlette l Result documented in this encounter Visit Diagnoses Not on filedocumented in this encounter Care Teams Tire Inspector Relationship Specialty Start Date End Date Moraima López MD [phone] (work) PCP - General 09/26/16 documented as of this encounter
--- OUTSIDE RECORDS SUMMARY | 2024-05-21 11:45 | XMS_ITS | Encounter Summary ---
Author Name [facility] [place] [facility] [place] [facility] [place] Address [address] [place] [address] Care Team Providers Care Residential Housekeeper Name Role Phone BA BROWN Primary Care Provider Unavailabl e Insurance Providers: All historical and current Section Date Range: From patient's date of to the date document was created. This section includes the names of all active insurance providers for the patient. Insurance Provider Type of Coverage Plan Name Start of Policy Coverage End of Policy Coverage Group Number Member ID Insurance Provider's Telephone Number Policy Barajas's Name Patient's Relationship to Policy Barajas [place] SUPPLEMEN [place] MED[employer] ARE SUPPL EMENT Dec 08, 2014 [id number] [phone] NINA FRIED PATIENT AN[place] MED[place] SUPPLE[place] MED[place] ARE SUPPL EMENT Dec 08, 2014 [id number] [phone] NINA FRIED PATIENT [place] SUPPLEMEN [place] MED[place] ARE SUPPL EMENT Dec 08, 2014 [id number] [phone] HENRY FRIEDREY PATIENT [place] SUPPLE[place] MED[place] ARE SUPPL EMENT Dec 08, 2014 [id number] [phone] HENRY FRIEDREY PATIENT MEDICARE (WNR) MEDICARE (M) PART B Dec 08, 2014 PART B [id number] NINA FRIED PATIENT MEDICARE (WNR) MEDICARE (M) PART A Jan 07, 2005 PART A [id number] NINA FRIED PATIENT Selected Encounter This section includes the [place] on [place] at [place] for the Encounter. Date/Time Encounter Type Encounter Description Reason Provider Source May 14, 2024 08:30 AM THERAPEUTIC EXERCISES PHYSICAL THERAPY ICD-10-CM M54.50 Low back pain, unspecified THELMA,EAMON E IHE Encounter Template Text not used by [facility] Assessments - Encounter Diagnoses This section includes the primary and secondary diagnoses documented for the Encounter. Date/Time Primary/Secondary Diagnosis Diagnosis Name Provider Source May 14, 2024 09:02 AM PRIMARY Low back pain, unspecified KATIA RENEEE E [facility] Plan of Treatment: Future Appointments (+ 6 months) and Future Tests (+/- 45 days) The Plan of Treatment section includes future care activities for the patient from all [place] treatmentfacilities. This section includes future appointments and future orders which are active, pending or scheduled. Future Appointments This section includes appointments that were scheduled to occur 6 months from the date of the Encounter, up to a maximum of 20 appointments. The data comes from all [place] treatment facilities. Appointment Date/Time Appointment Type Appointme nt Facility Name Jun 09, 2024 07:30 AM AMBULATORY - NONE [facility] Jun 11, 2024 08:30 AM AMBULATORY - REHAB MEDICIN E [facility] Jun 16, 2024 09:00 AM AMBULATORY - NONE [facility] Jun 16, 2024 02:00 PM AMBULATORY - NEUROLOGY [facility] Jun 20, 2024 08:30 AM AMBULATORY - SURGERY [facility] Jul 23, 2024 07:30 AM AMBULATORY - NONE [facility] Jul 25, 2024 09:15 AM AMBULATORY - MEDICINE [facility] Oct 13, 2024 11:00 AM AMBULATORY - NONE [facility] Active, Pending, and Scheduled Orders This section includes a listing of several types of active, pending, and scheduled orders, including clinic medications orders, diagnostic test orders, procedure orders and consult orders; where thestart date of the order is 45 days before the date of the Encounter or 45 days after the date of the Encounter. The data comes from all [place] treatment facilities. Test Date/Time Test Type Test Details Facility Name Apr 16, 2024 11:22 AM Procedure Order CP EMG PRO CEDURE CP EMG PROCEDURE MAKSIM Proc B[facility] Lab Results: +/- 30 days of the encounter This section includes the Chemistry and Hematology Lab Results on record with [place] for the patient. Radiology Reports and Pathology Reports are provided separately, in subsequent sections. Lab Results This section contains the Chemistry/Hematology Results that were resulted 30 days before or 30 daysafter the date of the Encounter. Date/Time Source Result Type Result - Unit Interpretation Reference Range Comment Apr 16, 2024 12:00 AM [facility] MICRAL/CREAT PROFILE (STL) Specimen Type: URINE No comment entered. Ordering Provider: BA BROWN Report Released Date/Time: Apr 16, 2024 11:22 AM Reporting Lab: [address] [id number] Performing Lab: [address] [address] URINE ALBUMIN (PB-STL) 163.2 mg/L uACR (STL) 106 mg/g H 0-29 CREATININE URINE/OTHERS 153.6 mg/dL 63-166 Apr 16, 2024 12:00 AM [facility] HGA1C Specimen Type: BLOOD No comment entered. Ordering Provider: BA BROWN Report Released Date/Time: Apr 16, 2024 11:22 AM Reporting Lab: [facility] [address] [facility] [address] Performing Lab: [address] [address] HGA1C 4.7 4.0-6.0 Apr 16, 2024 12:00 AM [facility] B12 Specimen Type: SERUM No comment entered. Ordering Provider: BA BROWN Report Released Date/Time: Apr 16, 2024 11:22 AM Reporting Lab: [address] [phone] Performing Lab: [address] [phone] B12 1221 pg/mL H 213-816 Apr 16, 2024 12:00 AM [facility] FOLATE (L-MA) Specimen Type: SERUM No comment entered. Ordering Provider: BA BROWN Report Released Date/Time: Apr 16, 2024 11:22 AM Reporting Lab: [facility] [address] [facility] [phone] Performing Lab: [facility] [address] [facility] [phone] FOLATE (STL-MA) 14.2 ng/mL 7-20 Social History: Smoking Status (Most current) and Tobacco Use (All prior to encounter date) This section includes the most current, and the historical, smoking and tobacco- related health factors from the [place] facility where the Encounter took place. Current Smoking Status This section includes the most current smoking, or tobacco-related health factor, from the [place] facility where the Encounter took place. Date/Time Current Smoking Status Comment Lyla ity Feb 05, 2024 08:30 AM [facility]-TOBACCO FORMER USER [facility] Tobacco Use History This section includes a history of the smoking, or tobacco-related health factors, that were collected on or before the date of the Encounter. The data comes from the [place] facility where the Encounter took place. Date/Time Smoking Status/Tobacco Use Comment F acility Feb 05, 2024 08:30 AM [place] 1 TO < 5 YRS [facility] Encounter Notes: All associated encounter notes This section contains the clinical notes associated to the Encounter. Date/Time Encounter Note(s) Provider Source May 14, 2024 08:35 AM PHYSICAL MEDICINE REHAB NOTE: LOCAL TITLE: PT DAILY STL STANDARD TITLE: PHYSICAL MEDICINE REHAB NOTE DATE OF NOTE: MAY 14, 2024@08:35 ENTRY DATE: MAY 07, 2024@15:32:06 AUTHOR: EAMON RENEE COSIGNER: URGENCY: STATUS: COMPLETED Chart Review: PMH: 1) Type 2 diabetes mellitus 2) Essential hypertension 3) Hypothyroidism 4) Bipolar disorder 5) Vitamin D deficiency 6) Chronic low back pain Chart Review: Imagin02/05/2024: (Case [id number] COMPLETE) SPINE LUMBOSACRAL 2 OR 3 VIEWS (RAD Detailed) CPT:87275 Reason for Study: Low back pain Clinical History: Report Status: Verified Date Reported: FEB 06, 2024 Date Verified: FEB 06, 2024 Quality Control Inspector E-Sig:/ES/LISSETTE GARCIA MD Report: Case #[id number]. Lumbar spine examination. Finding: AP and lateral views of the lumbar spine followed by cone-down lateral view of the lumbosacral junction shows five nonrib-bearing lumbar vertebrae. Marked disc space narrowing and marginal spur at L4-5. Mild disc space narrowing at L5-S1. Other intervertebral disc spaces are unremarkable. Marginal spur at T12-L1 and also at T11-T12. No other evidence of loss of vertebral height. No evidence of spondylolisthesis. Impression: Marked degenerative disc change at L4-5. Mild degenerative disc change at T11-T12 and T12-L1. --- Referring provider:LEROY PRECIADO Start of Care: 03/05/2024 Reevaluation due: 04/04/2024 POC through: 06/05/2024 Visits to date: 4 No shows/cancellations: 0 Diagnosis: Low back pain, unspecified(ICD-10-CM M54.50) 48-year-old male with chronic low back pain needs further evaluation and treatment. X-rays of the lumbar spine are pending. Treatment time: Total 20 mins. Evaluation mins. Therapeutic exercise:20 mins. Self-care management: mins. Manual Therapy: mins PRECAUTIONS: none SUBJECTIVE: 05/14/2024: Patient states the back is doing well. He is working on exercises and feels he is getting stronger. He is having trouble with flexibility still. PROGRESS NOTE 04/23/2024: Pt states the back is doing well. He wants to make exercises harder/work on ability to go into a squatting position. 03/26/2024: Patient states he is a little looser but still has pain in the morning. He states the exercises are going well. INITIAL EVALUATION: Pt reports chronic low back pain. He is noticing n/t in his toes that is getting worse. His pain is worse on the right side in his lower back. He has a history of sciatica. He did PT and stretches cleared it right up. He reports his hamstrings are really tight. --Onset: --Occupation: --Pain Increased With: bending forward --Pain Decreased With: standing up, stretches/exercises --Pain Rating (0-10): Current: 5/10 Best: 10 Worst: 12/17 --Pt. goal(s): Pt reports to be able to move again Oswestry Score: 03/05/2024: 50% 04/23/2024: 22% OBJECTIVE: Assistive Device: none Cognition: Pt. is alert and oriented. Pt. is appropriate in conversation and answers questions directly. Gait: Posture: left thoracic and lumbar curve, right iliac crest higher than left, left shoulder elevated. Palpation: tender to lower lumbar spine/PAs to lumbar spine Active Trunk Motions: (*=pain) -rotation right: wnl -rotation left: wnl -sidebend right: painful and limited 25% -sidebend left: wnl -forward bend: painful- with left side bending, limited 50% -trunk extension: wnl Neural Tension: L R -Sciatic (DF + hip add/IR) + + Strength: /5 L R -Hip abd 5 5 -Hip flex (L2 myotome) 5 5 -Hip ext -Hip add -Hip IR 5 5 -Hip ER 5 5 -Knee ext (L3 myotome) 5 5 -Knee flex (S2 myotome) 5 5 -ankle DF (L4 myotome) 4 5- -1st toe ext (L5 myotome) -ankle PF (S1 myotome) Movement Screen: -BKFO (bent knee fall out): mild increased pelvic rotation at end range of motion -Quadruped Rock Back: increased left side bending noted, improved with hip held in external rotation/abduction. -Quadruped Single Arm Elevation: Flexibility: L R -Hamstring mod mod -Hip flexor -Quadriceps mod mod Hip supine ROM: L R -Hip flexion wnl limited 25% -Hip internal rotation wnl limited 75% (able to achieve 10-15 deg) -Hip external rotation wnl limited 25% -Hip abduction Appropriate treatment approach: [x] symptom modulation approach (ARTHUR > 40%) [] movement control approach (ARTHUR 20-40%) [] function optimization approach (ARTHUR < 20%) TREATMENT: Therapeutic exercise: -quadruped rock back x 10 reps- patient has tendency to perform left lumbar side bend -prone quad stretch 3 x 20 seconds- improved quadruped rock back ROM afterwards -half kneeling hip flexor stretch 3 x 20 seconds Pt was instructed in and demonstrated independence with current HEP x 1 including: -quadruped rock back x 10 reps- with right hip externally rotated and abducted -bkfo 2 x 10 reps -supine heel slide 2 x 10 reps -with opp knee up in 90/90 position -standing toe raises 2 x 10 reps -modified rock back/hip hinge 2 x 10 reps - focus on breathing as well to increased right lower lobe breathing/rib expansion -hip hinge squat 2 x 10 reps -standing diaphragmatic breathing- hand on right lower rib cage to improve rib expansion -quad stretch 3 x 20 seconds prone -mc stretch 3 x 20 seconds -theraband walk out with green tb 5s x 10 reps -plank 5 x 1 minute -side plank 5 x 30 seconds -bird dog 2 x 10 reps -tb walk out with blue tb 2 x 10 reps -gastroc stretch 3 x 30 seconds -ankle df mob 5s x 10 reps -pigeon pose 3 x 30 seconds -piriformis stretch 3 x 30 seconds next visit: -quad stretching -hip mobility exercises -functional activities with hip hinge ASSESSMENT: Patient tolerated treatment well. Noticed increased quad stiffness this visit leading to impaired right knee mobility and impacting overall hip and back mobility due to compensations related to this. Added prone quad stretching which helped improve this. Will follow up one more visit to ensure continued independence with HEP and progression of symptoms. GOALS: Short term: 3-4 weeks 1) Pt. will demonstrate independence with current HEP x 1 (met) 2) Pt. will report pain at worst <9/10 (ongoing) 3) Pt. to demonstrate independence with proper sitting, standing, and sleeping postures (ongoing) superintendent terminal: 1) Pt to demonstrate independence with final HEP x 1 (ongoing) 2) Pt. to report pain at worst <8/10 (ongoing) 3) Pt. to improve score on Oswestry by 10% indicating improved function with ADL's (met) --BARRIERS: [] NONE. [x] Complexities/Conditions/Circums tances that may impact treatment: [] Cognition: [] Home environment: [] Distance patient lives from facility: [] Support of family/friends to assist: [] Transportation to facility issues: [] Patients willingness to participate: [] Work issues: [] Difficulty getting time off: [] Requires certain time slots to accommodate work schedule: [x] Co-morbidities: DMII, htn, hypothyroidism, bipolar disorder, vitamin d deficiency, chornic low back pain [x] Other: chronicity [] Prognostic factors for development of recurrent pain present: [] hx of previous episodes [] excessive spinal mobility [] excessive mobility in other joints (Beighton > 5) [] Prognositc factors for development of chronic low back pain present: [] presence of sx below the knee [] psychological distress or depression [] fear of pain, movement, and reinjury or low expectations of recovery [] pain of high intensity [] passive coping style --REHABILITATION POTENTIAL: [] POOR - Limited potential for improvement. [] GUARDED - There exists a question of the potential for improvement [x] FAIR - Presents with the potential to improve in some areas while other deficits may remain unchanged. [] GOOD - Presents with the potential to improve to a level of functional independence, though may continue to demonstrate certain minimal limitations with consistent performance of HEP. [] EXCELLENT - Presents with the potential to fully recover with no residual deficits. --CONTINUED SKILLED THERAPY NEEDED TO ADDRESS THE FOLLOWING IMPAIRMENTS/FUNCTIONAL LIMITATIONS AND EDUCATIONAL NEEDS: [x] Pain: [x] Physiological impairments of: [x] Balance: [x] ROM: [x] Strength: [] Other: [x] ADL deficits: [x] WB activities: [x] Self-care: [] Other: [x] Education needs: Individual(s) involved: [x] Patient: [] Caregiver: [x] Achieving (I) with home program: [x] Gain further of understanding of self-management of condition: [] Self-Care: [] Caregiver education: [] Other: Equipment: PLAN: Cont. PT 1X every 3-4 weeks for up to 12 weeks for ROM, muscle strengthening, postural re-education, joint/soft mobilization. --PATIENT EDUCATION DOCUMENTATION: Person(s) who received education: [x] Patient; [] Family: [] Other: Education Topic/Teaching Needs: [x] Home program: [x] Why compliance with home program is important [] Regarding automated call/letter regarding scheduled appointment; two no show policy; late arriving for appointment; follow up appointment lengths. [] TENS [x] Nature of condition [] Other: Methods used Included: [x] Handout(s): [x] Home program: [] Why compliance with home program is important [] Regarding automated call/letter regarding scheduled appointment; two no show policy; late arriving for appointment; follow up appointment lengths. [] TENS [] Other: [x] One-on one: [x] Verbal instructions [x] Visual instructions [x] Tactile cues. [] Other: Teaching Outcomes: [x] Good; [] Fair; [] Poor [x] Patient acknowledged understanding of instruction [] Family/Other acknowledged understanding of instruction Learning Assessment: Patient/Caregiver appeared ready for instruction (good eye contact, appropriate questions, active participation, etc.) Person(s) who received education: Patient Education Topic/Teaching Needs: Rehabilitation and Habilitation HEP, POC, nature of condition Methods used included: Handout: HEP Oral: verbal Demonstration: patient demonstration Teaching outcomes: Good level of understanding /ladi/ EAMON RENEE PHYSICAL THERAPIST Signed: 05/14/2024 09:02 [facility] RENEE [facility]
--- OUTSIDE RECORDS SUMMARY | 2024-05-21 11:45 | XMS_ITS | Encounter Summary ---
Author Name [facility] [place] [facility] [place] Address [address] [place] [address] Care Team Providers Care Tie In Hand Name Role Phone BA BROWN Primary Care [...] MEDIC ARE SUPPL EMENT Dec 08, 2014 [id number] [phone] NINA FRIED PATIENT ANTHEM [place]BS [place] MEDICARE SUPPLEMEN GAEL MEDIC ARE SUPPL EMENT Dec 08, 2014 [id number] [phone] NINA FRIED PATIENT ANTHEM [place] MEDICARE SUPPLEMEN GAEL MEDIC ARE SUPPL EMENT Dec 08, 2014 [id number] [phone] JARETJOHN NINA PATIENT [place] MEDICARE SUPPLEMEN GAEL MEDIC ARE SUPPL EMENT Dec 08, 2014 [id number] [phone] FARIHAHENRYNINA PATIENT MEDICARE (WNR) MEDICARE (M) PART B Dec 08, 2014 PART B [id number] NINA FRIED PATIENT MEDICARE (WNR) MEDICARE (M) PART A Jan 07, 2005 PART A [id number] NINA FRIED PATIENT Selected Encounter This section includes the information on record at [place] for the Encounter. Date/Time Encounter Type Encounter Description Reason Provider Source Apr 30, 2024 10:00 AM EDU&TRN PT SELF-MGMT NQHP 1 PRIMARY CARE/MEDICINE ICD-10-CM I10 Essential (primary) hypertension VEGA GARZA [place] Encounter Template Text not used by [place] Assessments - Encounter Diagnoses This section includes the primary and secondary diagnoses documented for the Encounter. Date/Time Primary/Secondary Diagnosis Diagnosis Name Provider Source May 12, 2024 10:41 AM PRIMARY Essential (primary) hypertension VEGA GARZA [facility] Plan of Treatment: Future Appointments (+ 6 months) and Future Tests (+/- 45 days) The Plan of Treatment section includes future care activities for the patient from all [place] treatmentfacilities. This section includes future appointments and future orders which are active, pending or scheduled. Future Appointments This section includes appointments that were scheduled to occur 6 months from the date of the Encounter, up to a maximum of 20 appointments. The data comes from all [place] treatment facilities. Appointment Date/Time Appointment Type Appointme nt Facility Name May 14, 2024 08:30 AM AMBULATORY - REHAB MEDICIN E [facility] May 14, 2024 12:00 PM AMBULATORY - SURGERY [facility] Jun 09, 2024 07:30 AM AMBULATORY - NONE . [facility] Jun 11, 2024 08:30 AM AMBULATORY - REHAB MEDICIN E [facility] Jun 16, 2024 09:00 AM AMBULATORY - NONE [facility] Jun 16, 2024 02:00 PM AMBULATORY - NEUROLOGY [facility] Jun 20, 2024 08:30 AM AMBULATORY - SURGERY [facility] Jul 23, 2024 07:30 AM AMBULATORY - NONE [facility] Jul 25, 2024 09:15 AM AMBULATORY - MEDICINE [facility] Oct 13, 2024 11:00 AM AMBULATORY - NONE . [facility] Active, Pending, and Scheduled Orders This section includes a listing of several types of active, pending, and scheduled orders, including clinic medications orders, diagnostic test orders, procedure orders and consult orders; where the start date of the order is 45 days before the date of the Encounter or 45 days after the date of theEncounter. The data comes from all [place] treatment facilities. Test Date/Time Test Type Test Details Facility Name Apr 16, 2024 11:22 AM Procedure Order CP EMG PRO CEDURE CP EMG PROCEDURE [facility] Proc Chief Marketing Officer's Choice [facility] Lab Results: +/- 30 days of the encounter This section includes the Chemistry and Hematology Lab Results on record with [place] for the patient. Radiology Reports and Pathology Reports are provided separately, in subsequent sections. Lab Results This section contains the Chemistry/Hematology Results that were resulted 30 days before or 30 daysafter the date of the Encounter. Date/Time Source Result Type Result - Unit Interpretation Reference Range Comment Apr 16, 2024 12:00 AM [facility] MICRAL/CREAT PROFILE (STL) Specimen Type: URINE No comment entered. Ordering Provider: BA BROWN Report Released Date/Time: Apr 16, 2024 11:22 AM Reporting Lab: [facility] [address] [facility] [phone] Performing Lab: [facility] [address] [place] [phone] URINE ALBUMIN (PB-STL) 163.2 mg/L uACR (STL) 106 mg/g H 0-29 CREATININE URINE/OTHERS 153.6 mg/dL 63-166 Apr 16, 2024 12:00 AM [facility] HGA1C Specimen Type: BLOOD No comment entered. Ordering Provider: BA BROWN Report Released Date/Time: Apr 16, 2024 11:22 AM Reporting Lab: [facility] [address] [place] [phone] Performing Lab: [facility] [address] [facility] [id number] HGA1C 4.7 4.0-6.0 Apr 16, 2024 12:00 AM [facility] B12 Specimen Type: SERUM No comment entered. Ordering Provider: BA BROWN Report Released Date/Time: Apr 16, 2024 11:22 AM Reporting Lab: [facility] [address] [facility] [phone] Performing Lab: [facility] [address] [facility] [phone] B12 1221 pg/mL H 213-816 Apr 16, 2024 12:00 AM [facility] FOLATE (L-MA) Specimen Type: SERUM No comment entered. Ordering Provider: BA BROWN Report Released Date/Time: Apr 16, 2024 11:22 AM Reporting Lab: [facility] [address] [facility] [phone] Performing Lab: [facility] [address] [facility] [phone] FOLATE (STL-MA) 14.2 ng/mL 7-20 Vital Signs: All taken on the encounter date This section contains inpatient and outpatient Vital Signs collected on the date of the Encounter. Date/Time Temperature Pulse Blood Pressure Respiratory Rate SP02 Pain Height Weight Body Mass Index Source Apr 30, 2024 10:29 AM 142/88 [facility] Apr 30, 2024 10:29 AM 144/80 [facility] Apr 30, 2024 10:28 AM 142/88 [facility] Apr 30, 2024 10:27 AM 80 148/88 [facility] Social History: Smoking Status (Most current) and Tobacco Use (All prior to encounter date) This section includes the most current, and the historical, smoking and tobacco- related health factors from the [place] facility where the Encounter took place. Current Smoking Status This section includes the most current smoking, or tobacco-related health factor, from the [place] facility where the Encounter took place. Date/Time Current Smoking Status Comment Facil ity Feb 05, 2024 08:30 AM VA-TOBACCO FORMER USER [facility] Tobacco Use History This section includes a history of the smoking, or tobacco-related health factors, that were collected on or before the date of the Encounter. The data comes from the [place] facility where the Encounter took place. Date/Time Smoking Status/Tobacco Use Comment F acility Feb 05, 2024 08:30 AM VA-TOBACCO QUIT 1 TO < 5 YRS [facility] Encounter Notes: All associated encounter notes This section contains the clinical notes associated to the Encounter. Date/Time Encounter Note(s) Provider Source Apr 30, 2024 11:05 AM ADDENDUM: LOCAL TITLE: Addendum STANDARD TITLE: ADDENDUM DATE OF NOTE: APR 30, 2024@11:05:13 ENTRY DATE: APR 30, 2024@11:05:14 AUTHOR: BA BROWN EXP COSIGNER: URGENCY: STATUS: COMPLETED Patient needs additional blood pressure medication. If you would like for us to manage it, will add amlodipine 10 mg daily and recheck blood pressure in 1 month. If patient wants his outside provider to manage it, please advise him to follow-up with him. Please assign this patient to my panel. /es/ BA BROWN MD. PHYSICIAN, [facility], [id number] Signed: 04/30/2024 11:07 Receipt Acknowledged By: * AWAITING SIGNATURE * VEGA GARZA 04/30/2024 11:46 /es/ DANDY LUQUEERSON OUTSIDE SALES MANAGER * AWAITING SIGNATURE * ALESSANDRA ZIEGLER --- Original Document --- 04/30/24 V15 PACT FACE TO FACE NOTE STL: Nurse Visit: Patient Identifiers : Full Name Date of Reason for visit: B/P check Mode of Arrival: Ambulatory Allergy Review: Patient has answered NKA Allergy list reviewed and remains current. Recent Vital Signs: Pulse: 80 (04/30/2024 10:27 B/P:Left arm chetan 148/88 - 142/88 (04/30/2024 10:29) Right arm chetan 144/80------- 142/88 Blood pressure (BP) follow-up: Other comments: Provider didn't instruct patient to check B/P at home, just come in after 2 weeks for recheck. B/P taken x2 both arms manuelly. Patient reports increase weakness to legs and having several near misses of falling. Patient encouraged go to [facility] and get sized for a cane. Patient also reports missing calls from [facility], patient returned call a few times and spoke to someone once that never called back. Nurse called Neuro office LVM requesting an earlier appt. or place patient on cancellation list.Nurse also called [facility] left message. Patient denies receiving either of the No call letters. Nurse gave patient phone numbers to both departments. Patient was thankful. Follow-up instructions: Discussed diet patient reports having changed diet completely lost 200 lbs. [place]'s understanding verified by teach back: Yes /es/ ML BALL,RN REGISTERED NURSE Signed: 04/30/2024 11:01 Receipt Acknowledged By: 04/30/2024 11:05 /es/ BA BROWN MD. [facility]IC[facility], [facility] BA BROWN [facility] Apr 30, 2024 10:48 AM NURSING NOTE: LOCAL TITLE: 5 PACT FACE TO FACE NOTE STL STANDARD TITLE: NURSING NOTE DATE OF NOTE: APR 30, 2024@10:48 ENTRY DATE: APR 30, 2024@10:48:15 AUTHOR: VEGA GARZA EXP COSIGNER: URGENCY: STATUS: COMPLETED V15 PACT FACE TO FACE NOTE STL Has ADDENDA Nurse Visit: Patient Identifiers : Full Name Date of Reason for visit: B/P check Mode of Arrival: Ambulatory Allergy Review: Patient has answered NKA Allergy list reviewed and remains current. Recent Vital Signs: Pulse: 80 (04/30/2024 10:27 B/P:Left arm chetan 148/88 - 142/88 (04/30/2024 10:29) Right arm chetan 144/80------- 142/88 Blood pressure (BP) follow-up: Other comments: Provider didn't instruct patient to check B/P at home, just come in after 2 weeks for recheck. B/P taken x2 both arms manuelly. Patient reports increase weakness to legs and having several near misses of falling. Patient encouraged go to [facility] and get sized for a cane. Patient also reports missing calls from [facility], patient returned call a few times and spoke to someone once that never called back. Nurse called Neuro office LVM requesting an earlier appt. or place patient on cancellation list.Nurse also called [facility] left message. Patient denies receiving either of the No call letters. Nurse gave patient phone numbers to both departments. Patient was thankful. Follow-up instructions: Discussed diet patient reports having changed diet completely lost 200 lbs. [place]'s understanding verified by teach back: Yes /JOHNNY TorresN,RN REGISTERED NURSE Signed: 04/30/2024 11:01 Receipt Acknowledged By: 04/30/2024 11:05 /ladi/ BA BROWN MD. PHYSICIAN, [facility], [id number] 04/30/2024 ADDENDUM STATUS: COMPLETED Patient needs additional blood pressure medication. If you would like for us to manage it, will add amlodipine 10 mg daily and recheck blood pressure in 1 month. If patient wants his outside provider to manage it, please advise him to follow-up with him. Please assign this patient to my panel. /ladi/ BA BROWN MD. PHYSICIAN, [facility], [id number] Signed: 04/30/2024 11:07 Receipt Acknowledged By: * AWAITING SIGNATURE * VEGA GARZA * AWAITING SIGNATURE * DANDY PATEL * AWAITING SIGNATURE * ALESSANDRA ZIEGLER MONICA E [facility]
== END 2024-05-21 11:47 | disposition home or self-care (01) ==
PROVIDERS: Emergency Provider Registered Nurse; PCP Family Medicine
DX: S61.012A Laceration without foreign body of left thumb without damage to nail, initial encounter (principal); W26.0XXA Contact with knife, initial encounter; Z23 Encounter for immunization
CPT/HCPCS: 12001; 90471; 90715; 99213; G0463